=== PATIENT | female | born 1970 | race Two or more races ===

== ENCOUNTER 2025-02-19 19:13 | Emergency (ER) | payer MEDICAID ==
[~2025-02-19] VITALS: Ht 157.5 cm; Wt 82.9 kg
[~2025-02-19 19:13] MED LIST: ASPI1TAB19 OR; BENA-36 OR; CLOP75TA28; GLIP10TA21 OR; METF1000 OR; PIOG45TA11 OR; SUMA100T2; TRAM50TA2 OR
[2025-02-19] MEDS: FLUORESCEIN SOD OPTH TEST STRIP RIGHTEYE ONE (20:21)
[2025-02-19] MEDS: TETRACAINE HCL 0.5% OPTH(EYE) SOLN 4ML RIGHTEYE ONE (20:21)
[2025-02-19] MEDS ORDERED: MOXI0.5D9 RIGHTEYE (20:26)
--- NOTE | 2025-02-19 20:27 | ED.PDOC ---
Eye-HPI HPI Comments 54-YEAR-OLD DIABETIC TYPE 2 FEMALE PRESENTS TO THE ED PT COMPLAINT OF RIGHT EYE PAIN. PT REPORTS THAT IT FEELS LIKE SHE HAS SOMETHING IN HER CORNEA. VISION IS BLURRY. PAIN UPON BLINKING OF EYELID. HE HAS NUMBNESS, WEAKNESS, SHORTNESS OF BREATH, CHEST PAIN, DIFFICULTY BREATHIN, FEVER, CHILLS, NAUSEA OR VOMITING REPOR TS NO HEADACHE Chief Complaint: Eye Problem Time Seen by MD: 19:19 Primary Care Provider: CHRIS Reviewed Notes: Nurses Notes, Medications, Allergies Allergies: Coded Allergies: NO KNOWN ALLERGIES (Unverified , 11/18/09) Home Meds Active Scripts Moxifloxacin Hydrochloride (Moxifloxacin) 0.5 % Gary, 1 DROP RIGHTEYE TID for 7 Days, #5 ML Prov:YAMILEWILLIAM TRANSPORTATION CONSULTANT 02/19/25 Reported Medications Clopidogrel Bisulfate (Plavix) 75 Mg Tab, DAILY 08/19/10 Sumatriptan Succinate (Imitrex) 100 Mg Tab, DAILYP 08/19/10 Pioglitazone Hydrochloride (Actos) 45 Mg Tab, 45 MG OR DAILY 11/18/09 Benazepril Hcl (Benazepril Hcl) 20 Mg Tab, 20 MG OR DAILY 11/18/09 Glipizide (Glipizide Er) 10 Mg Tab, 10 MG OR BID 11/18/09 Metformin Hydrochloride (Glucophage) 1,000 Mg Tab, 1000 MG OR BID 11/18/09 Tramadol Hcl (Tramadol Hcl) 50 Mg Tab, 50 MG OR Q6HP 11/18/09 Aspirin (Aspirin) 81 Mg Tab, 81 MG OR DAILY 11/18/09 Information Source: Patient Mode of Arrival: Ambulatory Past Medical History PAST MEDICAL HISTORY: Asthma, DM, HTN Surgical History: Appendectomy, , Hysterectomy Family History Family History: Unobtainable Social History Lives In: Home All Other Systems: Reviewed and Negative (SEE HPI) Physical Exam General Appearance: No Apparent Distress, Normal HEENT: Pharynx Normal, TMs Normal, Other (EYES SCLERAL HYPEREMIA WITH CLEAR DRAINAGE NO OBVIOUS FOREIGN BODY) Neck: Full Range of Motion, Non-Tender, Normal, Normal Inspection Respiratory: Chest Non-Tender, Lungs Clear, No Accessory Muscle Use, No Respiratory Distress, Normal Breath Sounds Cardiovascular: No Edema, No JVD, No Murmur, No Gallop, Normal Peripheral Pulses, Regular Rate/Rhythm Breast Exam: Deferred Gastrointestinal: No Organomegaly, Non Tender, No Pulsatile Mass, Normal Bowel Sounds, Soft Genitalia: Deferred Pelvic: Deferred Rectal: Deferred Extremities: No calf tenderness, Normal capillary refill, Normal inspection, Normal range of motion, Non-tender, No pedal edema Musculoskeletal : Apperance: Normal Neurologic: Alert, area director of home health sales II-XII nml as Tested, No Motor Deficits, Normal Affect, Normal Mood, No Sensory Deficits Cerebellar Function: Normal Reflexes: Normal Skin: Dry, Normal Color, Warm Lymphatic: No Adenopathy Was a procedure done? Was a procedure done?: Yes Sedation Sedation?: No Informed consent obtained: Yes Other Procedure Procedure Wood's lamp exam right eye Indication Pain, redness and foreign body feeling Anesthetic Tetracaine 1% one drop Prep Fluorescein 1 mg Success Noted ulcerations, lacerations, abrasions, or globe penetration no noted foreign bodies. Informed consent obtained: Yes Risks, benefits, and alternati: Yes EENT DIFF Eye: Chalazion, Conjunctivitis, Corneal Ulceration, Foreign Body-Conjunctiva, Foreign Body-Corneal, Foreign Body-Intraocular, Foreign Body-Lid, Glaucoma, Globe Rupture, Orbital Cellulits, Periorbital Cellulits, Retinal Artery Occlusion X-Ray, Labs, Meds, VS Vital Signs Date Time Temp Pulse Resp B/P (MAP) Pulse Ox O2 Delivery O2 Flow Rate FiO2 02/19/25 20:44 81 16 98 Room Air 02/19/25 20:44 98.2 81 16 146/65 (92) 98 98.2 02/19/25 19:14 98.2 81 16 152/77 98 98.2 X-Ray, Labs, Meds, VS Comment See procedure note. Script trial of antibiotic drops advised take medication as prescribed side effects discussed. Precautions glucose was 136. Patient with history of type 2 diabetes advised to follow up with Ophthalmology in 2-3 days further evaluation of floaters. Advised on ER return precautions patient indicates understanding and agrees with discharge plan of care. Time of 1ST Reevaluation: 19:19 Reevaluation 1ST: Unchanged Time of 2ND Reevaluation: 20:25 Reevaluation 2ND: Improved Patient Education/Counseling: Diagnosis, Treatment, Need For Follow Up Family Education/Counseling: Need For Follow Up SEPSIS Sepsis Screen Date sepsis recognized/suspect: Feb 19, 2025 Time Sepsis recognized/suspect: 1917 Recent Procedure: No On Antibiotic Therapy: No Respiratory Rate >20: No Heart Rate >90: No Temp<36 C (96.8 F) or >38.3 C: No SBP <90 or MAP <65 mmHG: No New Acute Mental Status Change: No Is the patient on CPAP, BIPAP,: No Vital Signs Date Time Temp Pulse Resp B/P (MAP) Pulse Ox O2 Delivery O2 Flow Rate FiO2 02/19/25 20:44 81 16 98 Room Air 02/19/25 20:44 98.2 81 16 146/65 (92) 98 98.2 02/19/25 19:14 98.2 81 16 152/77 98 98.2 Departure 1 Departure Time of Disposition: 20:22 Impression: Primary Impression: Floaters in visual field Qualified Codes: H43.391 - Other vitreous opacities, right eye Disposition: HOME / SELF CARE / HOMELESS Condition: Stable e-Prescriptions Moxifloxacin Hydrochloride (Moxifloxacin) 0.5 % Gary 1 DROP RIGHTEYE TID for 7 Days, #5 ML Prov: WILLIAM OVALLE 02/19/25 Discharged With: Self Critical Care Note Critical Care Time?: No Stability Stability form required: WILLIAM Tamez Feb 19, 2025 20:27
[2025-02-19 20:44] VITALS: BP 146/65; PULSE 81; RESP 16; TEMP 98.2; O2SAT 98
== END 2025-02-19 20:45 | disposition home or self-care (01) ==
LOC: ER 19:13
DX: H43.391 Other vitreous opacities, right eye (principal); I10 Essential (primary) hypertension; E11.9 Type 2 diabetes mellitus without complications; J45.909 Unspecified asthma, uncomplicated; Z79.82 Long term (current) use of aspirin; Z79.84 Long term (current) use of oral hypoglycemic drugs; Z90.49 Acquired absence of other specified parts of digestive tract; Z90.710 Acquired absence of both cervix and uterus; Z98.890 Other specified postprocedural states